=== PATIENT | female | born 1980 | race Caucasian/White ===

== ENCOUNTER 2017-11-10 08:13 | Day surgery (SDC) | payer OTHER ==
[2017-11-09 10:53] VITALS: BMI 39.8
--- NOTE | 2017-11-10 08:04 | HP ---
History & Physical Update - History History: No Change - Physical Physical: No Change - Assessment Assessment: No Change - Plan Plan: No Change (No change fro HP done on 10/08/17)
[2017-11-10 08:35] LABS: BASO % 0.4 % (0-2.0); EOS % 0.9 % (0-4.5); HEMATOCRIT 38.3 % (32.4-45.2); HEMOGLOBIN 13.1 GM/dL (10.7-15.3); LYMPH % 29.4 % (8-40); MCH 30.1 pg (25.7-33.7); MCHC 34.2 g/dl (32.0-36.0); MEAN CELL VOLUME 87.9 fl (80-96); MEAN PLT VOLUME 7.8 fl (7.5-11.1); MONO % 7.1 % (3.8-10.2); NEUT % 62.2 % (42.8-82.8); PLATELET COUNT 256 K/MM3 (134-434); RBC 4.36 M/mm3 (3.60-5.2); RDW 13.6 % (11.6-15.6); WHITE BLOOD COUNT 10.5 K/mm3 (4.0-10.0)
[2017-11-10 09:04] LABS: ALBUMIN 3.3 g/dl (3.4-5.0); ALK PHOS 82 U/L (45-117); ANION GAP 6 (8-16); BLOOD UREA NITROGEN 11 mg/dL (7-18); CALCIUM 8.8 mg/dL (8.5-10.1); CHLORIDE 104 mmol/L (98-107); CO2 28 mmol/L (21-32); CREATININE 0.6 mg/dL (0.55-1.02); GLUCOSE,RANDOM 101 mg/dL (74-106); POTASSIUM 3.9 mmol/L (3.5-5.1); SGOT/AST 13 U/L (15-37); SGPT/ALT 29 U/L (12-78); SODIUM 138 mmol/L (136-145); TOT PROT 7.2 g/dl (6.4-8.2)
[2017-11-10] MEDS ORDERED: MIDAZOLAM HCL 2 MG/2 ML SINGLE DOSE VIAL ONE (09:58)
[2017-11-10] MEDS ORDERED: oxyCODONE HCL 5 MG TABLET PO PRN ×2 (10:24)
[2017-11-10] MEDS ORDERED: ONDANSETRON 4 MG/2 ML VIAL IVPUSH PRN (10:24)
[2017-11-10] MEDS ORDERED: LACTATED RINGERS SOLUTION 1,000 ML IV SCH (10:30)
--- NOTE | 2017-11-10 11:02 | OP ---
DATE OF OPERATION: 11/10/2017 PREOPERATIVE DIAGNOSIS: Missed . OPERATION: Suction dilatation and curettage. POSTOPERATIVE DIAGNOSIS: Missed . SURGEON: Chayo Farley MD ANESTHESIA: General. PROCEDURE: Patient was taken to the operating room, placed in dorsal lithotomy position, prepped and draped in the usual sterile fashion. A timeout was performed in accordance with hospital regulation. Speculum was placed in the vagina. Anterior lip of the cervix grasped with single-tooth tenaculum. Cervix was then dilated to accommodate the number 10 suction curette. Patient was approximately 11-12 weeks. Suction curettage followed by sharp curettage. All contents were submitted for chromosomal analysis. Patient tolerated the procedure well, was taken to recovery room in stable condition. ESTIMATED BLOOD LOSS: 40 mL CHAYO FARLEY M.D. [id number]
[2017-11-10 12:33] VITALS: PULSE 78
--- NOTE | 2017-11-10 12:52 | OP ---
Operative Note - Note: Operative Date: 11/10/17 Pre-Operative Diagnosis: missed Operation: Suction DC Findings: Uterus 11 cm Post-Operative Diagnosis: Same as Pre-op Surgeon: Chayo Farley Anesthesia: General Estimated Blood Loss (mls): 40 Operative Report Dictated: Yes
[2017-11-10 13:50] VITALS: BP 102/65; TEMP 98.6
--- NOTE | 2017-11-14 09:09 | PATH ---
Surgical Pathology Report Patient Name: CAITLIN HAMILTON Med. Rec. #: [id number] /Age/Gender: 1980 (Age: 37) / F Account: [id number] Location: [facility] SURGICAL Taken: 11/10/2017 Received: 11/10/2017 Reported: 11/14/2017 Physicians: Chayo Farley M.D. Specimen(s) Received PRODUCTS OF CONCEPTION/CONTENTS FOR GENETIC TESTING Clinical History Missed Final Diagnosis PRODUCTS OF CONCEPTION, SUCTION DILATATION AND CURETTAGE: IMMATURE CHORIONIC VILLI AND DECIDUA CONSISTENT WITH PRODUCTS OF CONCEPTION. CHROMOSOMAL ANALYSIS IS PENDING. RESULTS WILL BE REPORTED AN ADDENDUM. Electronically Signed Leonela Kee M.D. Gross Description Received fresh, labeled "products of conception," is a 9 x 8 x 1 cm. aggregate of jack-red hemorrhagic soft tissue fragments. Villous tissue is identified. No somatic tissue is identified. A contracts representative portion is submitted in 3 cassettes. Stitch Bonding Machine Drawer In portion is submitted for chromosomal analysis. SERA/11/10/2017 yasmani/11/10/2017
== END 2017-11-10 13:15 | disposition home or self-care (01) ==
LOC: JASU-SURG 08:13
PROVIDERS: ATTEND Obstetrics & Gynecology
PROC: 10D17ZZ Extraction of Products of Conception, Retained, Via Natural or Artificial Opening (ICD-10-PCS; principal; 2017-11-10 10:00)
DX: O02.1 Missed abortion (principal)
CPT/HCPCS: 36415; 80053; 85025; 86850; 86900; 86901; 88305-TC

== ENCOUNTER 2020-05-13 06:56 | Inpatient (IN) | payer OTHER ==
--- OUTSIDE RECORDS SUMMARY | 2020-05-13 07:51 | XMS ---
:1980 [facility] Support Name Relationship Address Phone PAU ZAPATA [address] [place] [address] UE, UNEMPLOYED Unavailable Unavailable Unavailable UE Unavailable Unavailable Unavailable FROY RADER FATHER [address] [place] [phone] [place] [address] Re-disclosure Warning The records that you are about to access may contain information from federally- assisted alcohol or drug abuse programs. If such information is present, then the following federally mandated warning applies: This information has been disclosed to you from records protected by federal confidentiality rules (42 CFR part 2). The federal rules prohibit you from making any further disclosure of this information unless further disclosure is expressly permitted by the written consent of the person to whom it pertains or as otherwise permitted by 42 CFR part 2. A general authorization for the release of medical or other information is NOT sufficient for this purpose. The Federal rules restrict any use of the information to criminally investigate or prosecute any alcohol or drug abuse patient.The records that you are about to access may contain highly sensitive health information, the redisclosure of which is protected by Article 27-F of the [facility] Public Health law. If you continue you may haveaccess to information: Regarding HIV / AIDS; Provided by facilities licensed or operated by the [facility] Office of Mental Health; or Provided by the [facility] Office for People With Developmental Disabilities. If such information is present, then the following [facility] mandated warning applies: This information has been disclosed to you from confidential records which are protected by state law. State law prohibits you from making any further disclosure of this information without the specific written consent of the person to whom it pertains, or as otherwise permitted by law. Any unauthorized further disclosure in violation of state law may result in a fine or care home sentence or both. A general authorization for the release of medical or other information is NOT sufficient authorization for further disclosure. Insurance Providers Payer name Policy type Policy ID Covered Covered green party's Policy P kristin / Coverage green party ID relationship to [place] Inf ormation type salter [employer] [id number] HU [id number] HEALTHCARE PPO 2 CIGNA [id number] SP [id number] HEALTHCARE PPO 2 Results ID Date Data Source [id number] 05/09/2020 09:40:00 AM EDT [facility] Name Value Range Interpretation Description Data Sup porting Code Source(s) Document(s ) SARS [facility] coronavirus 2 RNA This lab was ordered by [facility] and reported by [facility]. Procedure
[2020-05-13 08:27] VITALS: BMI 45.7
[2020-05-13] MEDS ORDERED: PROMETHAZINE HCL 25 MG/1 ML VIAL IVPUSH ONE (09:08)
--- NOTE | 2020-05-13 09:08 | HP ---
Past Medical History - Primary Care Physician PCP:: Chayo Farley - Admission Chief Complaint: elective induction History Source: Patient Limitations to Obtaining History: No Limitations - Past Medical History ...: 4 ...Para: 1 ...Term: 1 ...: 0 ...Spon : 2 ...Induced : 0 ...Living Children: 1 ...LMP: 08/20/19 ... Weeks Gestation by Dates: 38.1 ...EDC by Dates: 05/26/20 ...EDC by Sono: 05/18/20 - Past Surgical History Hx Myomectomy: No Hx Transabdominal Cerclage: No - Smoking History Smoking history: Never smoked Have you smoked in the past 12 months: No - Alcohol/Substance Use Hx Alcohol Use: No Home Medications - Allergies Allergies/Adverse Reactions: Allergies Allergy/AdvReac Type Severity Reaction Status Date / Time No Known Allergies Allergy Verified 11/10/17 08:55 - Home Medications Home Medications: Ambulatory Orders Pnv No.95/Ferrous Fum/Folic AC [ Vitamin Tablet] 1 each PO DAILY 05/13/20 Physical Exam - Maternity Vital Signs: Vital Signs Temperature 98.5 F 05/13/20 08:16 Pulse Rate 94 H 05/13/20 08:16 Respiratory Rate 17 05/13/20 08:16 Blood Pressure 128/68 05/13/20 08:16 O2 Sat by Pulse Oximetry (%) Constitutional: Yes: Well Nourished, No Distress Hemorrhage Risk Assessment - Risk Factors Risk Score: 0 Risk Level: Low Risk Assessment/Plan Elective induction 39 week Cat 1 Plan Cervidil
[2020-05-13] MEDS ORDERED: DINOPROSTONE 10 MG VAGINAL SUPPOSITORY VG ONE (09:14)
[2020-05-13] MEDS ORDERED: ELECTROLYTE-148 SOLN 1,000 ML IV SCH (09:15)
[2020-05-13 09:20] LABS: BASO % 0.4 % (0-2.0); EOS % 0.4 % (0-4.5); HEMOGLOBIN 11.5 GM/dL (10.7-15.3); LYMPH % 18.3 % (8-40); MCH 30.8 pg (25.7-33.7); MCHC 34.8 g/dl (32.0-36.0); MEAN CELL VOLUME 88.4 fl (80-96); MEAN PLT VOLUME 9.8 fl (7.5-11.1); MONO % 5.8 % (3.8-10.2); NEUT % 75.1 % (42.8-82.8); PLATELET COUNT 197 K/MM3 (134-434); RBC 3.73 M/mm3 (3.60-5.2); RDW 14.1 % (11.6-15.6); WHITE BLOOD COUNT 10.6 K/mm3 (4.0-10.0)
[2020-05-13 09:30] LABS: INR 1.07 (0.83-1.09); PROTHROMBIN TIME (PATIENT) 12.6 SEC (9.7-13.0)
[2020-05-13 09:32] LABS: ACTIVATED PTT 25.6 SECONDS (25.2-36.5)
[2020-05-13 09:41] LABS: BLOOD UREA NITROGEN 7.4 mg/dL (7-18); CALCIUM 8.5 mg/dL (8.5-10.1); CREATININE 0.7 mg/dL (0.55-1.3); POTASSIUM 3.7 mmol/L (3.5-5.1)
--- NOTE | 2020-05-13 11:21 | PD.OB.PROG ---
Past Medical History - Primary Care Physician PCP:: Chayo Farley Documenting Provider Type: Laborist - Admission Chief Complaint: High risk, AMA, for induction. History of Present Illness: 39.3 weeks. Induction is being planned. Fully reviewed records available. - Nursing Documentation Maternal Triage Index: Maternal Triage Index ( Priority 5, Requesting MFTI) Hemorrhage Risk Assessment: Risk Level Low Risk High Level Risk Factors for None Hemorrhage Medium Level Risk Factors for None of the above Hemorrhage Low Level Risk Factors for None of the above Hemorrhage Nursing Documentation Reviewed: Yes - Past Medical History OFFICE MESSENGER HELPER: Denies/None Cardio/Vascular: Denies/None Pulmonary: Denies/None Gastrointestinal: Denies/None Hepatobiliary: Denies/None Renal/: Denies/None ...: 4 ...Para: 1 ...Term: 1 ...: 0 ...Spon : 2 ...Induced : 0 ...Living Children: 1 ...LMP: 08/20/19 ... Weeks Gestation by Dates: 38.1 ...EDC by Dates: 05/26/20 ...EDC by Sono: 05/18/20 Heme/Onc: Denies/None Infectious Disease: Denies/None Psych: Denies/None Musculoskeletal: Denies/None Rheumatology: Denies/None ENT: Denies/None Endocrine: Denies/None Dermatology: Denies/None - Past Surgical History Past Surgical History: Yes: None - Smoking History Smoking history: Never smoked Have you smoked in the past 12 months: No - Alcohol/Substance Use Hx Alcohol Use: No Review of Systems - Review of Systems Constitutional: reports: No Symptoms Eyes: reports: No Symptoms HENT: reports: No Symptoms Neck: reports: No Symptoms Cardiovascular: reports: No Symptoms Respiratory: reports: No Symptoms Gastrointestinal: reports: No Symptoms Genitourinary: reports: No Symptoms Breasts: reports: No Symptoms Reported Musculoskeletal: reports: No Symptoms Integumentary: reports: No Symptoms Neurological: reports: No Symptoms Endocrine: reports: No Symptoms Hematology/Lymphatic: reports: No Symptoms Psychiatric: reports: No Symptoms Physical Exam - Obstetrical Vital Signs: Vital Signs Temperature 98.0 F 05/13/20 10:00 Pulse Rate 83 05/13/20 10:00 Respiratory Rate 18 05/13/20 10:00 Blood Pressure 131/75 05/13/20 10:00 O2 Sat by Pulse Oximetry (%) Constitutional: Yes: Well Nourished, No Distress, Calm Eyes: Yes: WNL, Conjunctiva Clear, EOM Intact HENT: Yes: WNL, Atraumatic, Normocephalic Neck: Yes: WNL, Supple, Trachea Midline Cardiovascular: Yes: WNL, Regular Rate and Rhythm Lungs: Clear to auscultation Breast(s): Yes: WNL - Abdominal Exam/OB Fundal Height: 40 Number of Fetuses: Single Presentation: Vertex Contractions: No Monitor Mode: External Heart Rate (range): 135 Heart Rate Location: [facility] Category: I Accelerations: Uniform Decelerations: None - Vaginal Exam/OB Vaginal Exam Deferred: No Vaginal Bleeding: No Dilatation (cm): 0 Effacement (%): 50 Presentation: Vertex/Position Station: -2 (Cx is soft.) - Physical Exam Musculoskeletal: Yes: WNL Extremities: Yes: WNL Integumentary: Yes: WNL ...Motor Strength: WNL Psychiatric: Yes: WNL - Labs Lab Results: CBC, BMP 05/13/20 09:10 05/13/20 09:10 Problem List - Problems (1) , high-risk Code(s): O09.90 - SUPERVISION OF HIGH RISK , UNSP, UNSP TRIMESTER Assessment/Plan Term gestation, high risk, for induction. Cervidil placed. Fully discussed.
[2020-05-13] MEDS ORDERED: BUTORPHANOL TARTRATE 2 MG/ML VIAL ONE (15:37)
[2020-05-13] MEDS ORDERED: PROMETHAZINE HCL 25 MG/1 ML VIAL ONE (15:38)
[2020-05-13] MEDS: BUTORPHANOL TARTRATE 1 MG/ML VIAL IVPB PRN (15:55)
--- NOTE | 2020-05-13 19:38 | PN ---
Ante-Partal Exam - Subjective Subjective: Pt doing well after stadol cervidil removed due to tachsystole Vital Signs: Vital Signs Temperature 98.1 F 05/13/20 18:00 Pulse Rate 70 05/13/20 18:00 Respiratory Rate 18 05/13/20 18:00 Blood Pressure 126/65 05/13/20 18:00 O2 Sat by Pulse Oximetry (%) Bleeding: No Headache: No Visual changes: No Right upper quadrant pain: No - Contractions Contractions: Yes Monitor Mode: External - Exam during Labor Variability: Moderate Category: I Monitor Accelerations: Present Monitor Decelerations: None Exam: Vaginal Dilatation (cm): 2 Effacement (%): 80 Amniotic Membrane Status: Intact Presentation: Vertex Station: -2 - Intrapartum Hemorrhage Risk Risk Score: 0 Risk Level: Low Risk - Assessment/Plan Assessment/Plan: Cat 1 39 week AMA Sciatic pain GBS neg Plan Continue observation
--- NOTE | 2020-05-13 23:04 | PN ---
Ante-Partal Exam - Subjective Subjective: Pt doing well contractions spaced Vital Signs: Vital Signs Temperature 98.1 F 05/13/20 18:00 Pulse Rate 74 05/13/20 21:00 Respiratory Rate 18 05/13/20 21:00 Blood Pressure 122/68 05/13/20 21:00 O2 Sat by Pulse Oximetry (%) Bleeding: No Headache: No Visual changes: No Right upper quadrant pain: No - Contractions Contractions: Yes Regularity: Irregular Monitor Mode: External - Exam during Labor Variability: Moderate Heart Rate Location: [facility] Category: I Monitor Accelerations: Present Monitor Decelerations: None Exam: Vaginal Dilatation (cm): 3-4 Amniotic Membrane Status: Intact Presentation: Vertex Station: -2 - Intrapartum Hemorrhage Risk Risk Score: 0 Risk Level: Low Risk - Assessment/Plan Assessment/Plan: iup at 39 week Cat 1 GBS neg Contractions irregular Plan pitocin aug
[2020-05-13] MEDS ORDERED: OXYTOCIN 30 UNITS in 0.9% NS 30 UNIT/500 ML INFUS.BAG IVPB SCH (23:15)
--- NOTE | 2020-05-14 09:00 | PN ---
Ante-Partal Exam - Subjective Subjective: Pt without prob Pt on pitocin Vital Signs: Vital Signs Temperature 97.9 F 05/14/20 08:00 Pulse Rate 85 05/14/20 08:00 Respiratory Rate 17 05/14/20 08:00 Blood Pressure 109/81 05/14/20 08:00 O2 Sat by Pulse Oximetry (%) 100 05/14/20 08:00 Bleeding: No Headache: No Visual changes: No Right upper quadrant pain: No - Contractions Contractions: Yes Regularity: Regular Monitor Mode: External - Exam during Labor Heart Rate Location: [facility] Category: I Exam: Vaginal Dilatation (cm): 5 Effacement (%): 70 Amniotic Membrane Status: Ruptured Amniotic Fluid: Clear Presentation: Vertex Station: -1 - Intrapartum Hemorrhage Risk Risk Score: 0 Risk Level: Low Risk - Assessment/Plan Assessment/Plan: acttive labor cat 1 Plan Continues pitocin
[2020-05-14] MEDS ORDERED: BUTORPHANOL TARTRATE 2 MG/ML VIAL ONE (09:10)
[2020-05-14] MEDS: BUTORPHANOL TARTRATE 1 MG/ML VIAL IVPB PRN (09:15)
[2020-05-14] MEDS ORDERED: BUTORPHANOL TARTRATE 2 MG/ML VIAL IVPB PRN (09:48)
[2020-05-14] MEDS ORDERED: FENTANYL/BUPIVACAINE/NS/PF - PCEA - 50 ML DISP.SYRIN EP ONE ×2 (10:27→13:45)
[2020-05-14] MEDS ORDERED: NALOXONE HCL 0.4 MG/ML VIAL IVPUSH PRN (11:20)
[2020-05-14] MEDS ORDERED: FENTANYL/BUPIVACAINE/NS/PF - PCEA - 50 ML DISP.SYRIN EP SCH (11:30)
[2020-05-14] MEDS ORDERED: PCA PUMP NR ONE (11:49)
[2020-05-14] MEDS ORDERED: OXYTOCIN 20 UNITS in 0.9% NS 20 UNIT/1,000 ML INFUS.BAG IV ONE (13:53)
[2020-05-14] MEDS ORDERED: BISACODYL 10 MG SUPP.RECT PR PRN (16:04)
[2020-05-14] MEDS ORDERED: ACETAMINOPHEN 325 MG TABLET (FP) PO PRN (16:04)
[2020-05-14] MEDS ORDERED: IBUPROFEN 600 MG TABLET (FP) PO PRN (16:04)
[2020-05-14] MEDS ORDERED: WITCH HAZEL 50% (TUCKS) 40 PAD/JAR PAD TP PRN (16:04)
[2020-05-14] MEDS ORDERED: BENZOCAINE 28 GM HEMORRHOIDAL OINTMENT TP PRN (16:04)
[2020-05-14] MEDS ORDERED: METHYLERGONOVINE MALEATE 0.2 MG/1 ML AMP IM PRN (16:04)
[2020-05-14] MEDS ORDERED: BENZOCAINE 20% 57 GM BOTTLE TP PRN (16:04)
--- NOTE | 2020-05-14 16:04 | PN ---
Ante-Partal Exam - Subjective Subjective: Pt with urge to push Vital Signs: Vital Signs Temperature 98.1 F 05/14/20 12:00 Pulse Rate 75 05/14/20 13:00 Respiratory Rate 17 05/14/20 13:00 Blood Pressure 134/66 05/14/20 13:00 O2 Sat by Pulse Oximetry (%) 98 05/14/20 13:00 Bleeding: No Headache: No Visual changes: No Right upper quadrant pain: No - Contractions Contractions: Yes Monitor Mode: External - Exam during Labor Variability: Moderate Category: I Monitor Decelerations: None Exam: Vaginal Dilatation (cm): 10 Amniotic Membrane Status: Ruptured Presentation: Vertex Station: +2 - Intrapartum Hemorrhage Risk Risk Score: 0 Risk Level: Low Risk
--- NOTE | 2020-05-14 16:06 | PN ---
Delivery - Delivery Vaginal Delivery: No Problems Type of Anesthesia: Epidural Episiotomy/Laceration: Perineal Extension/lac, 1st degree EBL (cc): 350 Delivery, Single - Stages of Labor Date 1st Stage Initiatied: 05/13/20 Time 1st Stage Initiated: 17:50 Date 2nd Stage Initiated: 05/14/20 Time 2nd Stage Initiated: 14:10 Date of Delivery: 05/14/20 Time of Delivery: 14:57 Time Placenta Delivered: 15:03 Placenta: Yes: Spontaneous - Condition of Animal Science Instructor/Group Billing Coordinator Present: No Gender: Female Position: Left, OA Total Hours ROM (Hrs/Mins): 6 hours, 12 minutes - 1 Minute Total Score: 9 5 Minutes Total Score: 9 - [place] Feeding Plan Initial Plan: Exclusive throughout hospitalization
[2020-05-14] MEDS ORDERED: OXYTOCIN 20 UNITS in 0.9% NS 20 UNIT/1,000 ML INFUS.BAG IV SCH (16:15)
[2020-05-15 08:47] LABS: BASO % 0.2 % (0-2.0); EOS % 0.8 % (0-4.5); HEMATOCRIT 31.9 % (32.4-45.2); HEMOGLOBIN 10.5 GM/dL (10.7-15.3); LYMPH % 20.8 % (8-40); MCH 29.3 pg (25.7-33.7); MCHC 32.8 g/dl (32.0-36.0); MEAN CELL VOLUME 89.2 fl (80-96); MEAN PLT VOLUME 10.2 fl (7.5-11.1); MONO % 8.1 % (3.8-10.2); NEUT % 70.1 % (42.8-82.8); PLATELET COUNT 224 K/MM3 (134-434); RBC 3.58 M/mm3 (3.60-5.2); RDW 14.5 % (11.6-15.6); WHITE BLOOD COUNT 14.2 K/mm3 (4.0-10.0)
[2020-05-16 09:37] VITALS: BP 124/84; PULSE 65; TEMP 97.9
--- NOTE | 2020-05-16 12:36 | DS ---
Physical Exam-BRINE PLANT OPERATOR Vital Signs: Vital Signs Temperature 97.9 F 05/16/20 09:36 Pulse Rate 65 05/16/20 09:36 Respiratory Rate 20 05/16/20 09:36 Blood Pressure 124/84 05/16/20 09:36 O2 Sat by Pulse Oximetry (%) 98 05/16/20 09:36 Constitutional: Yes: Well Nourished, No Distress Gastrointestinal: Yes: WNL, Soft, Abdomen, Obese ....Post : Yes: Uterus firm, Uterus non-tender Edema: No Labs: CBC, BMP 05/15/20 07:35 05/13/20 09:10 Delivery - Delivery Vaginal Delivery: No Problems Type of Anesthesia: Epidural Episiotomy/Laceration: Perineal Extension/lac, 1st degree EBL (cc): 350 Delivery, Single - Stages of Labor Date 1st Stage Initiatied: 05/13/20 Time 1st Stage Initiated: 17:50 Date 2nd Stage Initiated: 05/14/20 Time 2nd Stage Initiated: 14:10 Date of Delivery: 05/14/20 Time of Delivery: 14:57 Time Placenta Delivered: 15:03 Placenta: Yes: Spontaneous - Condition of Infant Small Parts 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 Operator/[employer] Financials Consultant Present: No Gender: Female Weight: 8 lb 9 oz Position: Left, OA Total Hours ROM (Hrs/Mins): 6 hours, 12 minutes - 1 Minute Total Score: 9 5 Minutes Total Score: 9 - [place] Feeding Plan Initial Plan: Exclusive throughout hospitalization Discharge Summary Problems reviewed: Yes Reason For Visit: LABOR ADMIT Current Active Problems , high-risk (Acute) Procedures: Principal: Normal vaginal delivery Condition: Good - Instructions Diet, Activity, Other Instructions: Physical activity Resume your normal everyday activity as tolerated no heavy lifting or exercise until seen by your surgeon. You may walk unlimited hannah of and climb stairs. You may resume driving the car when you feel safe and comfortable behind the wheel. No sexual activity as instructed. Wound care If you have a bandage, leave it on, and keep dry for 48-72 hours. After that time discard the outer bandage. If they are tapes on the skin under the out of bandage leave them in place. They will peel off in the next 7 to 10 days. Do Not Peel them off. You may shower the day after surgery. If there are tapes present on the skin, you may shower over them. Diet There are no dietary restrictions. Eat healthy, high-fiber foods. Drink 6 to 8 glasses of liquid each day. This will assist in keeping your bowels are regular. Pain management You may take Tylenol or acetaminophen or Ibuprofen (for example, Motrin, Advil etc.) from my pain prescription medication is ordered should be taken as prescribed for moderate to severe pain. Call MD for any of the following: Severe pain not relieved by medication Fever of 101 or higher Excessive bleeding or drainage on dressing Inability to urinate Referrals: Chayo Farley MD [Staff Physician] - Disposition: HOME - Home Medications Comprehensive Discharge Medication List: Ambulatory Orders Pnv No.95/Ferrous Fum/Folic AC [ Vitamin Tablet] 1 each PO DAILY 05/13/20 Ibuprofen [Motrin -] 600 mg PO QID #28 tablet 05/16/20
== END 2020-05-16 13:35 | disposition home or self-care (01) | DRG 807 ==
LOC: JLDR 06:56 → J3W 05-14 17:56
PROVIDERS: ADMIT Obstetrics & Gynecology; ATTEND Obstetrics & Gynecology
PROC: 3E0P7VZ Introduction of Hormone into Female Reproductive, Via Natural or Artificial Opening (ICD-10-PCS; 2020-05-13)
PROC: 10E0XZZ Delivery of Products of Conception, External Approach (ICD-10-PCS; principal; 2020-05-14)
PROC: 0W8NXZZ Division of Female Perineum, External Approach (ICD-10-PCS; 2020-05-14)
DX: O70.0 First degree perineal laceration during delivery (principal); Z37.0 Single live birth; Z3A.39 39 weeks gestation of pregnancy
CPT/HCPCS: 36415; 59409; 80048; 85025; 85610; 85730; 86780; 86850; 86900; 86901